=== PATIENT | male | born 1960 | race Caucasian/White ===

== ENCOUNTER 2019-09-13 04:38 | Emergency (ER) | payer OTHER ==
[2019-09-13] MEDS ORDERED: IBUPROFEN 600 MG TABLET PO ONE (05:07)
[2019-09-13] MEDS ORDERED: ACETAMINOPHEN 500 MG TABLET PO ONE (05:07)
--- NOTE | 2019-09-13 05:13 | Emergency Department Record ---
History of Present Illness - General Chief complaint: Flu Like Symptoms Stated complaint: FLU LIKE SYMPTOMS Time Seen by Provider: 09/13/19 05:06 Source: Patient Mode of Arrival: Ambulatory Limitations: No limitations - History of Present Illness Initial comments: 59 yo male presents to ED for evaluation of fever, body aches, and non- productive cough symptoms that began 3 days ago. Patient reports that he has not taken anything for his fever symptoms, denies taking anything for his fever since his symptoms began. Patient denies abdominal pain, nausea, or vomiting symptoms on examination. Patient denies health problems at his baseline. MD Complaint: Generalized weakness Onset/Timin -: Days(s) Location: Generalized Quality: Aching Consistency: Constant Improves with: Medication Worsens with: Other Associated Symptoms: Fever/chills - Carnegie Coma Scale Eye Response: (4) Open spontaneously Motor Response: (6) Obeys commands Verbal Response: (5) Oriented Carnegie Total: 15 - Symptoms of Stroke Baseline State: Baseline State - Related Data Home Medications Medication Instructions Recorded Confirmed Last Taken Aspirin 81 mg PO DAILY 09/13/19 09/13/19 Unknown Atorvastatin Calcium 10 mg PO DAILY 09/13/19 09/13/19 Unknown Cholecalciferol (Vitamin D3) 5,000 unit PO DAILY 09/13/19 09/13/19 Unknown [Vitamin D3] Metformin HCl [Metformin HCl ER] 500 mg PO DAILY 09/13/19 09/13/19 Unknown Vitamin B Complex Vit C No.3 [B 1 each PO DAILY 09/13/19 09/13/19 Unknown Complex with Vitamin C] Allergies Allergy/AdvReac Type Severity Reaction Status Date / Time No Known Drug Allergies Allergy Verified 09/13/19 05:01 Travel/Exposure Screening - Travel/Exposure Within Last 30 Days Have you traveled within the last 30 days?: Yes Additional Travel Detail:: [place] - Travel/Exposure Within Last Year Have you traveled outside the [place] in the last year?: No - Additonal Travel/Exposure Details Have you been exposed to anyone with a communicable illness?: No - Travel Symptoms Symptom Screening: None Review of Systems Constitutional: Reports: Chills, Fever, Malaise, Weakness. Denies: Night sweats Eyes: Denies: Eye discharge, Eye pain ENT: Denies: Congestion, Ear pain, Epistaxis Respiratory: Reports: Cough. Denies: Dyspnea Cardiovascular: Denies: Chest pain, Dyspnea on exertion, Palpitations Endocrine: Reports: Fatigue. Denies: Heat or cold intolerance Gastrointestinal: Denies: Abdominal pain, Nausea, Vomiting Genitourinary: Denies: Incontinence, Retention Musculoskeletal: Reports: Myalgia. Denies: Arthralgia, Back pain Skin: Denies: Bruising, Change in color, Rash Neurological: Reports: Headache. Denies: Abnormal gait, Confusion, Seizure Psychiatric: Denies: Anxiety Hematological/Lymphatic: Denies: Anemia, Blood Clots Past Medical History - SOCIAL HISTORY Smoking Status: Current every day smoker Alcohol Use: None Drug Use: None - RESPIRATORY Hx Respiratory Disorders: No - CARDIOVASCULAR Hx Cardio Disorders: No - NEURO Hx Neuro Disorders: No - GI Hx GI Disorders: No - Hx Genitourinary Disorders: No - ENDOCRINE Hx Endocrine Disorders: Yes Hx Diabetes: Yes - MUSCULOSKELETAL Hx Musculoskeletal Disorders: No - PSYCH Hx Psych Problems: No - HEMATOLOGY/ONCOLOGY Hx Hematology/Oncology Disorders: No Family Medical History Any Significant Family History?: No Physical Exam - General General Appearance: Alert, Oriented x3, Cooperative, No acute distress Limitations: No limitations - Head Head exam: Atraumatic, Normocephalic, Normal inspection Head exam detail: negative: Abrasion, Contusion, Solorio's sign, General tenderness, Hematoma, Laceration - Eye Eye exam: Normal appearance. negative: Conjunctival injection, Periorbital swelling, Periorbital tenderness, Scleral icterus - ENT Ear exam: negative: Auricular hematoma, Auricular trauma Nasal Exam: negative: Active bleeding, Discharge, Dried blood, Foreign body Mouth exam: negative: Drooling, Laceration, Muffled voice, Tongue elevation - Neck Neck exam: Normal inspection. negative: Meningismus, Tenderness - Respiratory Respiratory exam: Normal lung sounds bilaterally. negative: Rales, Respiratory distress, Rhonchi, Stridor - Cardiovascular Cardiovascular Exam: Normal rhythm, Normal heart sounds, Tachycardia - GI/Abdominal GI/Abdominal exam: Soft. negative: Rebound, Rigid, Tenderness - Rectal Rectal exam: Deferred - exam: Deferred - Extremities Extremities exam: Normal inspection. negative: Pedal edema, Tenderness - Back Back exam: Denies: CVA tenderness (R), CVA tenderness (L) - Neurological Neurological exam: Alert, Normal gait, Oriented X3 - Psychiatric Psychiatric exam: Normal affect, Normal mood - Skin Skin exam: Normal color. negative: Abrasion Type of lesion: negative: abrasion Course Vital Signs 09/13/19 04:52 Temperature 102.5 F H Pulse Rate [ 127 H Pulse Ox Probe] Respiratory 24 Rate Blood Pressure 108/89 [Left Arm] Pulse Ox 92 L - Reevaluation(s) Reevaluation #1: 09/13/19 05:18 Influenza: Negative Reevaluation #2: 09/13/19 05:48 CXR: No acute process Patient and his were updated on all results, examination appears c/w viral syndrome. Instructions for symptomatic treatment were discussed. Offered to observe the patient for further duration as his temperature has not improved following Tylenol/Ibuprofen, patient declined as he weould prefer to rest at home. Patient appears stable for discharge at this time. Disposition Disposition: Discharge Clinical Impression: Influenza Disposition: Home, Self-Care Condition: (2) Stable Instructions: Viral Syndrome (ED) Additional Instructions: Return to ED if your symptoms worsen or if you have any concerns. Tylenol, Ibuprofen as directed. Follow-up with your family doctor in 3-5 days as directed. Forms: Patient Portal Access Time of Disposition: 05:49 Quality - Quality Measures Quality Measures: N/A - Blood Pressure Screening Does Patient Have Any of the Following: No Blood Pressure Classification: Normal BP Reading Systolic Measurement: 97 Diastolic Measurement: 74 Screening for High Blood Pressure: < Normal BP, F/U Not Required > [G8783] Pre-Hypertensive Follow-up Interventions: Referral to alternative/primary care provider.
[2019-09-13 05:14] LABS: INFLUENZA A NEGATIVE (NEGATIVE); INFLUENZA B NEGATIVE (NEGATIVE)
--- NOTE | 2019-09-13 05:41 | RADIOLOGY REPORT ---
EXAMINATION: Two View Chest Radiographs EXAM DATE: 09/13/2019 5:28 AM TECHNIQUE: Frontal and lateral views INDICATION: cough COMPARISON: None ENCOUNTER: Not applicable FINDINGS: The heart, mediastinum, and pulmonary vasculature are normal. No lung consolidation or pleural effu sions are present. There has been prior left clavicle fracture fixation. IMPRESSION: No acute cardiopulmonary disease is present. Dictated by: Arlet Peralta MD on 09/13/2019 5:38 AM. .
[2019-09-13] MEDS ORDERED: 0.9 % SODIUM CHLORIDE 1000ML 1,000 ML IV SCH ×2 (06:15→06:45)
[2019-09-13 06:28] LABS: HEMATOCRIT 43.4 % (42.0-52.0); HEMOGLOBIN 13.9 gm/dl (14.0-18.0); MEAN CELL VOLUME 97.7 fl (81-97); MEAN CORPUSCULAR HEMOGLOBIN 31.3 pg (27-33); MEAN PLATELET VOLUME 9.7 fl (7.4-10.4); PLATELET COUNT 178 K/uL (130-400); RED BLOOD COUNT 4.44 M/uL (4.40-5.70); RED CELL DISTRIBUTION WIDTH 13.7 % (11.5-14.5); WHITE BLOOD COUNT W/O DIFF 11.4 K/uL (4.2-12.2)
[2019-09-13 06:48] LABS: BILIRUBIN,TOTAL 0.5 mg/dL (0.2-1.0); CREATININE 1.3 mg/dL (0.7-1.2); TOTAL PROTEIN 7.1 g/dL (6.6-8.7)
[2019-09-13 06:53] LABS: ALB/GLOB RATIO 1.1 (1.1-1.8); ALBUMIN 3.7 g/dL (4.0-5.0); LACTIC ACID 2.2 mmol/L (0.5-2.2)
[2019-09-13 07:09] LABS: URINE APPEARANCE CLEAR; URINE BILIRUBIN SMALL (NEGATIVE); URINE BLOOD LARGE (NEGATIVE); URINE COLOR YELLOW; URINE GLUCOSE (UA) NEGATIVE (NEGATIVE); URINE KETONE 15 mg/dL (NEGATIVE); URINE LEUKOCYTE ESTERASE NEGATIVE (NEGATIVE); URINE NITRITE NEGATIVE (NEGATIVE)
[2019-09-13 07:27] LABS: PLATELET ESTIMATE NORMAL (NORMAL)
[2019-09-13 07:29] LABS: URINE BACTERIA NONE SEEN; URINE EPITHELIAL CELLS 0 - 2 (FEW); URINE WBC NONE SEEN (0-2/hpf)
== END 2019-09-13 07:47 | disposition home or self-care (01) ==
LOC: ER 04:38
DX: J10.1 Influenza due to other identified influenza virus with other respiratory manifestations (principal); R03.1 Nonspecific low blood-pressure reading; E11.9 Type 2 diabetes mellitus without complications; Z79.84 Long term (current) use of oral hypoglycemic drugs; F17.210 Nicotine dependence, cigarettes, uncomplicated
CPT/HCPCS: 71046; 80053; 81001; 83605; 85027; 87400; 99284; J7030